=== PATIENT | male | born 1960 | race Caucasian/White ===

== ENCOUNTER → 2020-07-23 | Outpatient (CLI) | payer BC ==
--- NOTE | 2020-07-23 13:03 | Diagnostic Imaging Report ---
TECHNIQUE: Magnetic resonance imaging of the LEFT KNEE was performed WITHOUT injected contrast. HISTORY: Sprain of anterior cruciate ligament, left knee pain, history of ACL repair COMPARISON: None available. FINDINGS: LIGAMENTS AND TENDONS: ACL: Attenuation and thinning of the ACL with scattered susceptibility foci, compatible with postsurgical changes from prior repair. No abnormal signal to suggest acute injury. PCL: Intact Collateral ligaments: Intact Iliotibial band: Unremarkable Popliteal tendon: Intact Extensor mechanism: Intact JOINT: Menisci: Medial: Complex tear with radial component at the posterior horn of the medial meniscus. Lateral: Extensive complex tearing throughout the lateral meniscus with meniscal fragment extending into the meniscofemoral recess. Articular Cartilage: Medial Compartment: Diffuse cartilage thinning with focal high-grade/near full-thickness cartilage defect measuring up to 9 mm along the weightbearing medial femoral condyle. Lateral Compartment: Diffuse high-grade cartilage loss along the weightbearing lateral femoral condyle. Patellofemoral Compartment: Diffuse low-grade cartilage loss along the patella. High-grade cartilage loss along the lateral trochlear groove. Joint Fluid: Small joint effusion with synovitis and scattered foci of debris. Small Michele's cyst with few loose bodies, largest measures up to 8 mm. BONE: No fractures or acute osseous abnormalities. No infiltrative bone marrow replacing signal abnormalities. Subchondral cystic changes along the anterior aspect of the lateral femoral condyle, likely related to overlying cartilage degeneration. SOFT TISSUES: Otherwise, unremarkable. IMPRESSION: 1. ACL remains intact with thinning and attenuation, likely related to prior surgical repair. No signal changes to suggest acute ACL injury. 2. Complex tear with radial component at the posterior horn of the medial meniscus. Associated focal high-grade cartilage defect along the medial femoral condyle. 3. Extensive complex tearing throughout the lateral meniscus. Associated diffuse high-grade cartilage loss along the lateral femoral condyle. 4. Additional moderate cartilage degeneration in the patellofemoral compartment. 5. Small joint effusion with synovitis and loose bodies. Additional small Michele's cyst which contains loose bodies. Signed by: Dr. Pb Mack M.D. on 07/23/2020 1:00 PM
== END ==
LOC: MRI 09:53
PROVIDERS: ATTEND Orthopaedic Surgery
DX: S83.512A Sprain of anterior cruciate ligament of left knee, initial encounter (principal); M25.362 Other instability, left knee

== ENCOUNTER → 2020-08-12 | Day surgery (SDC) | payer BC, OTHER ==
[2020-08-07 12:24] LABS: BASOPHILS % 0.7 % (0.0-1.0); EOSINOPHILS # (AUTO) 0.2 (0.0-0.4); EOSINOPHILS % 2.6 % (0.0-6.0); HEMATOCRIT 43.3 % (38.2-49.6); HEMOGLOBIN 15.2 g/dL (14.0-18.0); LYMPHOCYTES # (AUTO) 1.7 (1.0-3.2); LYMPHOCYTES % 29.5 % (18.0-39.1); MEAN CORPUSCULAR HEMOGLOBIN 29.6 pg (28-32); MEAN CORPUSCULAR HGB CONC 35.1 g/dL (31-35); MEAN CORPUSCULAR VOLUME 84.4 fL (81-99); MONOCYTES # (AUTO) 0.7 (0.2-0.8); MONOCYTES % 11.8 % (4.4-11.3); NEUTROPHILS # (AUTO) 3.2 (2.1-6.9); NEUTROPHILS % 55.2 % (38.7-80.0); PLATELET COUNT 124 x10e3/uL (140-360); RED BLOOD COUNT 5.13 x10e6/uL (4.3-5.7); RED CELL DISTRIBUTION WIDTH 14.6 % (11.7-14.4)
[2020-08-07 12:42] LABS: ANION GAP 13.4 mmol/L (8-16); CALCIUM 9.1 mg/dL (8.4-10.2); CREATININE, SERUM 1.53 mg/dL (0.72-1.25); POTASSIUM 4.4 mmol/L (3.5-5.1)
[~2020-08-12] MED LIST: ACIDOPHILUS1 EAC1 PO; ASPIRIN81 MG PO; ATORVASTATIN CA20 MG PO; BUPIVACAINE HCL 0.5% INJ 30 ML VIAL INJ ONE; CEFAZOLIN SOD 1 GM/NS 50ML 100 ML IV ONE; COQ-10100 MG PO; DEXAMETHASONE SOD PHOS INJ 4 MG/ML VIAL ONE; EPINEPHRINE 1 MG/ML 30ML VIAL ONE; FENTANYL CITRATE/PF 100MCG/2 ML INJ ONE; FISH OIL 1,0001 EAC2 PO; FLOMAX0.4 MG PO; HEPARIN SOD (PORCINE) 1000 UNIT/ML 30ML ONE; HYDROCHLOROTHIA25 MG PO; HYDROCODONE/APAP 10MG-325MG TAB ONE; KETOROLAC TROMETHAMINE 30 MG/ML VIAL ONE; LIDOCAINE HCL 2% JELLY 5 ML TUBE ONE; LIDOCAINE HCL 2% LOCAL INJ 5 ML SDV VIAL INJ ONE; MAGNESIUM PO; MICARDIS80 MG PO; MIDAZOLAM HCL 2 MG/2 ML VIAL ONE; MONTELUKAST SOD10 MG PO; ONDANSETRON HCL INJ 2MG/ML 2ML 2 MG/ML VIAL ONE; PROPOFOL IV EMULSION 10 MG/ML 20 ML VIAL ONE; SAW PALMETTO500 MG PO; SEVOFLURANE INHAL SOLN 250 ML PEN BTL ONE; SODIUM CHLORIDE 0.9% 500ML 500 ML ONE; TRIAMCINOLONE ACET 40 MG/ML VIAL ONE; VITAMIN B12 PO; VITAMIN D3 PO; VITAMIN E400 UNIT PO
[2020-08-12 08:35] VITALS: BP 126/84
--- NOTE | 2020-08-12 16:52 | Operative Report ---
DATE OF PROCEDURE: 08/12/2020 SURGEON: ALANA AVALOS MD PLACE OF SURGERY: [facility]. HISTORY: Mr. Renteria is a 59-year-old male with significant arthritic changes to his left knee due to multiple injuries in the past as well as multiple surgeries. On clinical examination, I felt that he had an underlying medial and lateral meniscal tears along with ACL tear along with arthritic changes, tricompartmental of his knee. The patient was seen and identified in the preoperative holding area and the patient also elected to proceed on with a bone marrow aspirate and bone marrow stem cell injection of his left knee as well. The left knee as well as the left iliac crest site was marked by myself. The patient agreed. The risks and benefits of surgery were outlined to him again consisting, not limited to the following, infection, blood loss, nerve, vessel or tendon injury, DVT, ongoing pain, and stiffness. He is aware that given the arthritic changes to his knee that the arthroscopy itself may not resolve, all of his pain symptoms nor the BMA injection. The patient was then brought back to the operative suite, placed supine on the operative table. Time-out was taken for Mr. Kang Renteria for diagnostic arthroscopy of his left knee in conjunction with BMA bone marrow aspirate and stem cell injection of the left knee. All were in agreement including nursing staff, Anesthesia, and myself. The patient was then brought back to the operative suite. A time-out was confirmed again. The patient was then given a successful general intubation anesthetic and a nonsterile tourniquet was placed high above the left thigh. The left iliac crest as well as the left knee, lower extremity was then sterilely prepped and draped in the usual standard fashion. Beginning with the left iliac crest site. I palpated off the ASIS and a small incision was just made slightly inferior to this. Blunt dissection was carried down in the soft tissue. Periosteum elevator was used to identify and confirm the anterior iliac crest and rim. Upon which time, a large trocar bone marrow aspirate was then inserted carefully. It was threaded down to the appropriate level. The inner sheath was removed and I was able to aspirate nearly 56 mL of bone marrow aspirate was harvested from the patient's left pelvic and iliac crest. The bone marrow aspirate was then taken off the field in process to extract the stem cells and approximately 11 mL of stem cells were eventually processed and were able to be obtained. Copious irrigation was carried out at the bone marrow aspirate site. Copious irrigation was carried out and the incision was closed using a 4-0 nylon suture in an interrupted fashion. Xeroform compressive dressing was applied. Attention then turned to the knee itself. The knee was exsanguinated. Tourniquet was inflated to approximately 250 mmHg. The initial 15 Bard-Dread blade was then used to make the vertical portal incisions well outside the borders of the patellar tendon along the medial and lateral joint line respectively. Upon examination of the intercondylar notch, the patient was noted to have multiple rice and loose bodies floating out through all 3 compartments as well as the intercondylar notch. A superior medial outflow portal was made to assist with removal of the rice and loose bodies, which ranged from as small as 2 to 3 mm in size to as large as 5 to 6 mm throughout all 3 joint compartments. Upon which time, through both medial and lateral portal, the arthroscopic synovectomy was carried out using a 4.0 shaver removing the inflamed synovium. This was done for all 3 compartments. Upon which time, the ACL was noted. The ACL was indeed nearly completely torn with some remnant fibers noted. The ACL tear was debrided down to a stable ligament. Attention was then turned to the medial compartment: The medial compartment shows a complex tear involving the medial meniscus including anterior horn, posterior horn, and midbody. Partial medial meniscectomy was carried out removing the torn meniscus. The meniscus was taken down to a stable rim. The patient had significant arthritic changes noted with grade 3 changes to both the medial femoral condyle and tibial plateau with marked cartilage fibrillation and delamination. The chondroplasty was completed removing the fibrillated and delaminated cartilage with a 4.0 shaver taken down to a stable rim. Attention was then turned to the patellofemoral compartment: The patient has significant grade 4 changes to the trochlear groove as well as grade 3 to 4 changes of both the medial and lateral facet. A marked cartilage fibrillation was noted. Multiple rice and loose bodies noted throughout. The loose bodies and rice bodies were removed. A chondroplasty was completed to remove the fibrillated and delaminated cartilage, taken them down to smooth contoured surface of both medial and lateral facet as well as the trochlear groove. Lateral compartment: Examination of the lateral meniscus shows a complex tear of lateral meniscus throughout the posterior horn, midbody, and anterior horn. Partial lateral meniscectomy was carried out using a meniscal biter and arthroscopic shaver. The meniscus was taken down to a stable rim. The patient has significant grade 3 to 4 changes to both the lateral femoral condyle and tibial plateau with multiple areas of cartilage fibrillation and delamination. Chondroplasty was completed removing the fibrillated and delaminated cartilage taken them down to smooth contoured surface. Copious irrigation was carried out through the entire knee. One last exploration revealed no other signs of rice or loose bodies. Upon which time, the joint was then irrigated out thoroughly. The 11 mL of bone marrow aspirate and stem cells were obtained from the patient and bone marrow aspirate was then injected into the left knee under sterile technique. The portal site was closed using 4-0 nylon suture and Xeroform compressive dressing was applied. The patient was successfully extubated and transferred to PACU in stable condition. PREOPERATIVE DIAGNOSES: 1. Degenerative joint disease of the left knee, tricompartmental. 2. Left knee medial meniscus tear. 3. Left knee lateral meniscus tear. POSTOPERATIVE DIAGNOSES: 1. [id number] degenerative joint disease of the left knee, tricompartmental. 2. Complex tear of the left medial meniscus. 3. Complex tear of the left lateral meniscus. 4. Multiple rice and loose bodies of the left knee. 5. Villonodular synovitis of the left knee. PROCEDURES: 1. Diagnostic arthroscopy of the left knee with left knee chondroplasty x3 compartments. 2. Left knee partial medial meniscectomy for complex medial meniscus tear. 3. Partial lateral meniscectomy for complex lateral meniscus tear. 4. Removal of multiple rice and loose bodies of the left knee. 5. Arthroscopic synovectomy for villonodular synovitis of the left knee. 6. Bone marrow aspirate of the left iliac crest. 7. Bone marrow injection, stem cell injection of the left knee. ANESTHESIA: General. ESTIMATED BLOOD LOSS: Less than 3 to 5 mL. SPECIMENS: With 50 mL of bone marrow aspirate from the left iliac crest. ANESTHESIA: General. COMPLICATIONS: None. CONDITION: Stable to PACU. The patient was seen in PACU. Dressing is clean and dry. Capillary refills are brisk. Intraoperative findings reviewed and discussed with his . Discharge wound care instructions were given. The patient was asked to follow up in Orthopedic Clinic in 12 to 14 days. The patient was discharged home with antibiotics as well as [place]. Discharge wound care instructions were discussed with nursing staff. MD JHONNY TENA/FOREST /[id number]
== END | disposition home or self-care (01) ==
LOC: OR 05:16
PROVIDERS: ATTEND Orthopaedic Surgery
DX: S83.232A Complex tear of medial meniscus, current injury, left knee, initial encounter (principal); S83.272A Complex tear of lateral meniscus, current injury, left knee, initial encounter; M22.42 Chondromalacia patellae, left knee; M23.42 Loose body in knee, left knee; M22.41 Chondromalacia patellae, right knee; M17.0 Bilateral primary osteoarthritis of knee; I10 Essential (primary) hypertension; Z01.810 Encounter for preprocedural cardiovascular examination; Z01.812 Encounter for preprocedural laboratory examination; Z11.59 Encounter for screening for other viral diseases; Z79.82 Long term (current) use of aspirin; Z68.36 Body mass index [BMI] 36.0-36.9, adult; S83.512A Sprain of anterior cruciate ligament of left knee, initial encounter; M25.362 Other instability, left knee; W01.0XXA Fall on same level from slipping, tripping and stumbling without subsequent striking against object, initial encounter
CPT/HCPCS: 0232T; 29880; 36415; 80048; 85025; 93005; J0690; J1100; J1644; J1885; J2001; J2250; J2405; J3010; J3301; J7040

== ENCOUNTER → 2023-03-03 | Day surgery (SDC) | payer BC, OTHER ==
[~2023-03-03] MED LIST changes: -BUPIVACAINE HCL 0.5% INJ 30 ML VIAL INJ ONE; -CEFAZOLIN SOD 1 GM/NS 50ML 100 ML IV ONE; -DEXAMETHASONE SOD PHOS INJ 4 MG/ML VIAL ONE; -EPINEPHRINE 1 MG/ML 30ML VIAL ONE; -FENTANYL CITRATE/PF 100MCG/2 ML INJ ONE; -HEPARIN SOD (PORCINE) 1000 UNIT/ML 30ML ONE; -HYDROCODONE/APAP 10MG-325MG TAB ONE; -KETOROLAC TROMETHAMINE 30 MG/ML VIAL ONE; +LACTATED RINGER'S 1,000 ML ONE; -LIDOCAINE HCL 2% JELLY 5 ML TUBE ONE; -LIDOCAINE HCL 2% LOCAL INJ 5 ML SDV VIAL INJ ONE; -ONDANSETRON HCL INJ 2MG/ML 2ML 2 MG/ML VIAL ONE; -SEVOFLURANE INHAL SOLN 250 ML PEN BTL ONE; -SODIUM CHLORIDE 0.9% 500ML 500 ML ONE; -TRIAMCINOLONE ACET 40 MG/ML VIAL ONE
[2023-03-03 11:20] VITALS: BP 142/90; PULSE 76; RESP 18; O2SAT 95
== END | disposition home or self-care (01) ==
LOC: OR 08:58
PROVIDERS: ATTEND Internal Medicine Gastroenterology
DX: Z09 Encounter for follow-up examination after completed treatment for conditions other than malignant neoplasm (principal); D12.2 Benign neoplasm of ascending colon; K52.9 Noninfective gastroenteritis and colitis, unspecified; K64.8 Other hemorrhoids; K64.5 Perianal venous thrombosis; Z71.3 Dietary counseling and surveillance; G47.33 Obstructive sleep apnea (adult) (pediatric); I10 Essential (primary) hypertension; E78.5 Hyperlipidemia, unspecified; Z01.810 Encounter for preprocedural cardiovascular examination; Z79.899 Other long term (current) drug therapy; Z68.35 Body mass index [BMI] 35.0-35.9, adult
CPT/HCPCS: 45378; 45380; 45385; 93005; J2250

== ENCOUNTER → 2025-02-13 | Outpatient (REF) | payer OTHER ==
[~2025-02-13] MED LIST changes: -LACTATED RINGER'S 1,000 ML ONE; -MIDAZOLAM HCL 2 MG/2 ML VIAL ONE; -PROPOFOL IV EMULSION 10 MG/ML 20 ML VIAL ONE
== END ==
LOC: RAD 08:29
PROVIDERS: ATTEND Internal Medicine
DX: Z01.818 Encounter for other preprocedural examination (principal)
CPT/HCPCS: 71046; 93005

== ENCOUNTER → 2025-05-21 | Day surgery (SDC) | payer OTHER ==
[2025-05-20 14:15] LABS: EST GLOMERULAR FILTRATION RATE 70.0 ML/MIN (>=60)
[~2025-05-21] MED LIST changes: +ACETAMINOPHEN 1000 MG/100 ML 100 ML IV ONE; +DEXAMETHASONE SOD PHOS INJ 4 MG/ML SDV ONE; +FENTANYL CITRATE/PF 100MCG/2 ML INJ ONE; +KETAMINE HCL INJ 50 MG/ML 10 ML VIAL ONE; +LIDOCAINE HCL 2% LOCAL INJ 5 ML SDV VIAL INJ ONE; +ONDANSETRON HCL INJ 2MG/ML 2ML 2 MG/ML VIAL ONE; +PROPOFOL IV EMULSION 10 MG/ML 20 ML VIAL ONE
[2025-05-21] MEDS: LACTATED RINGER'S 1,000 ML ONE (08:39)
[2025-05-21] MEDS: HYDROMORPHONE 1MG/1ML INJ ONE (13:04)
[2025-05-21] MEDS: HYDROCODONE/APAP 7.5MG-325MG 1 EA TAB ONE (13:22)
[2025-05-21 14:00] VITALS: BP 159/98; PULSE 66; RESP 16; O2SAT 98
== END | disposition home or self-care (01) ==
LOC: OR 08:18
PROVIDERS: ATTEND Specialist
DX: S76.112A Strain of left quadriceps muscle, fascia and tendon, initial encounter (principal); W01.0XXA Fall on same level from slipping, tripping and stumbling without subsequent striking against object, initial encounter; Y93.01 Activity, walking, marching and hiking; Y92.480 Sidewalk as the place of occurrence of the external cause; Z96.652 Presence of left artificial knee joint; I10 Essential (primary) hypertension; G47.33 Obstructive sleep apnea (adult) (pediatric); E66.01 Morbid (severe) obesity due to excess calories; Z68.37 Body mass index [BMI] 37.0-37.9, adult; Z79.82 Long term (current) use of aspirin; Z79.899 Other long term (current) drug therapy; Z01.810 Encounter for preprocedural cardiovascular examination; Z01.812 Encounter for preprocedural laboratory examination
CPT/HCPCS: 27385; 36415; 80048; 93005; C1713; J0131; J0690; J1100; J1171; J2003; J2405; J2704; J3010; J7121